=== PATIENT | male | born 1995 | race Caucasian/White ===

== ENCOUNTER 2017-02-02 18:12 | Emergency (ER) | payer OTHER ==
[2017-02-02 20:28] LABS: BASOPHIL 0.2 % (0-2); EOSINOPHIL 0.2 % (0-5); HCT 44.9 % (42.0-52.0); HGB 15.6 g/dl (13.2-18.0); LYMPHOCYTE 16.9 % (15-48); MCH 31.6 pg (25.0-31.0); MCHC 34.7 g/dL (32.0-36.0); MCV 91.1 fL (78.0-100.0); MPV 11.9 fL (6.0-9.5); NEUTROPHIL 72.7 % (41-80); PLT 280 K/uL (150-400); RBC 4.93 M/uL (4.70-6.00); RDW 12.8 % (11.5-14.0)
[2017-02-02 20:29] LABS: BILIRUBIN NEGATIVE (NEGATIVE); BLOOD NEGATIVE Ery/uL (NEGATIVE); CLARITY HAZY (CLEAR); COLOR YELLOW (YELLOW); GLUCOSE (U) NORMAL (NORMAL); KETONE (U) 2+ (MODERATE) mg/dL (NEGATIVE); LEUKOCYTES NEGATIVE Leu/uL (NEGATIVE); NITRITE NEGATIVE (NEGATIVE); PROTEIN 1+ mg/dL (NEGATIVE); SPECIFIC GRAVITY 1.025 (1.001-1.030); WBC 13.1 K/uL (4.0-10.5)
[2017-02-02 20:37] LABS: CREATININE 0.8 mg/dL (0.7-1.2); POTASSIUM 3.8 mmol/L (3.5-5.1)
[2017-02-02 20:42] LABS: AMPHETAMINES NEGATIVE (NEGATIVE); BARBITURATES NEGATIVE (NEGATIVE); BENZODIAZEPINES POSITIVE (NEGATIVE); COCAINE NEGATIVE (NEGATIVE); MARIJUANA (THC) POSITIVE (NEGATIVE); METHADONE NEGATIVE (NEGATIVE); TRICYCLIC ANTIDEPRESSANT NEGATIVE (NEGATIVE)
== END 2017-02-02 21:40 | disposition home or self-care (01) ==
LOC: FER 18:12
PROVIDERS: Emergency Medicine
DX: G40.409 Other generalized epilepsy and epileptic syndromes, not intractable, without status epilepticus (principal); F17.210 Nicotine dependence, cigarettes, uncomplicated; Z86.011 Personal history of benign neoplasm of the brain
CPT/HCPCS: 36415; 70450; 80048; 80305; 81003; 85025; J1953